=== PATIENT | female | born 1975 | race Caucasian/White ===

== ENCOUNTER 2020-08-09 07:45 | Day surgery (SDC) | payer MEDICARE, OTHER ==
[~2020-08-09] VITALS: Ht 167.6 cm; Wt 93.9 kg
[~2020-08-09 07:45] MED LIST: ALBU90OI61 INH; BUSP15; CITA20; CYCL10 PO; DIPATR PO; HYDR1TAB94 PO; IBUP600; MIRT15 PO; Monodox100 MG PO; NAPR500 PO; Neurontin 100100 MG; PROC25S PR; Percocet 10-321 EACH PO; Percocet 5-3251 EACH PO; RISPERDAL0.5 MG PO; RXHYD5325 PO; ZOLP10 PO; Zofran8 MG PO
[2020-08-09] MEDS ORDERED: DULO60 PO (08:28)
--- NOTE | 2020-08-09 09:15 | NUR ---
08/09/20 0915 Bailey Verma 0.5% MARCAINE MIXED TO MAKE 1:200,000 BY RN
== END 2020-08-09 10:25 | disposition home or self-care (01) ==
LOC: ORSCSDS 07:45
PROVIDERS: Podiatrist Foot & Ankle Surgery
PROC: 0QBP0ZZ Excision of Left Metatarsal, Open Approach (ICD-10-PCS; principal; 2020-08-09 09:00)
PROC: 0QBR0ZZ Excision of Left Toe Phalanx, Open Approach (ICD-10-PCS; principal; 2020-08-09 09:00)
DX: M20.5X2 Other deformities of toe(s) (acquired), left foot (principal); F32.1 Major depressive disorder, single episode, moderate; Z79.899 Other long term (current) drug therapy; E66.01 Morbid (severe) obesity due to excess calories; Z68.36 Body mass index [BMI] 36.0-36.9, adult
CPT/HCPCS: J0171; J0690; J1100; J1885; J2250; J2405; J2704; J7120

== ENCOUNTER → 2023-10-17 | Outpatient (CLI) | payer MEDICARE, OTHER ==
[~2023-10-17] MED LIST changes: +DULO60 PO; +ONDA4ODT MM; +PROM12.5S PR
[2023-10-17 19:43] LABS: Bacterial Vaginosis PCR Negative (NEGATIVE); Candida glabrata-krusei, PCR NOT DETECTED (NOT DETECT)
[2023-10-17 19:46] LABS: Candida Group, PCR NOT DETECTED (NOT DETECT)
== END ==
LOC: LAB SHORT 14:06 → LAB 14:06
PROVIDERS: Registered Nurse Community Health
DX: N89.8 Other specified noninflammatory disorders of vagina (principal); R35.0 Frequency of micturition
CPT/HCPCS: 87086; 87481; 87661; 87801

== ENCOUNTER → 2024-06-12 | Outpatient (CLI) | payer MEDICARE, OTHER ==
[2024-06-12 19:04] LABS: BASOPHILS ABSOLUTE AUTO 0.04 K/mm3 (0.00-0.23); BASOPHILS PERCENT AUTO 1 % (0-2); EOSINOPHILS ABSOLUTE AUTO 0.17 K/mm3 (0.00-0.68); EOSINOPHILS PERCENT AUTO 2 % (0-6); Hematocrit 50.2 % (33.0-51.0); IMMATURE GRAN ABSOLUTE AUTO 0.03 K/mm3 (0.00-0.10); IMMATURE GRAN PERCENT AUTO 0 % (0-1); LYMPHOCYTES ABSOLUTE AUTO 3.99 K/mm3 (0.84-5.20); LYMPHOCYTES PERCENT AUTO 45 % (21-46); MONOCYTES ABSOLUTE AUTO 0.49 K/mm3 (0.16-1.47); MONOCYTES PERCENT AUTO 6 % (4-13); Mean Corpuscular HGB Conc 33.9 g/dL (31.5-36.5); Mean Corpuscular Volume 89 fL (80-100); Mean Platelet Volume 11.8 fL (9.1-12.4); NEUTROPHILS ABSOLUTE AUTO 4.11 K/mm3 (1.96-9.15); NEUTROPHILS PERCENT AUTO 47 % (41-73); Platelet Count 182 K/mm3 (150-400); RDW Coefficient Variation 15.1 % (11.7-14.2); RDW Standard Deviation 48.1 fL (35.1-46.3); Red Blood Cell Count 5.67 M/mm3 (3.80-5.20); White Blood Cell Count 8.83 K/mm3 (4.00-11.30)
== END | disposition home or self-care (01) ==
LOC: LAB 17:22 → LAB SHORT 17:22
PROVIDERS: Nurse Practitioner Family
DX: E66.89 Other obesity not elsewhere classified (principal)
CPT/HCPCS: 85025